=== PATIENT | male | born 1965 | race African-American/Black ===

== ENCOUNTER → 2020-05-27 | Outpatient (CLI) | payer OTHER ==
[~2020-05-27] MED LIST: ASPIRIN EC81 MG PO; BUPROPION HCL150 MG PO; CARVEDILOL3.125 MG PO; CLOPIDOGREL75 MG PO; DICYCLOMINE HCL10 MG PO; FINASTERIDE5 MG PO; LOPRESSOR25 MG PO; LOSARTAN POTASS25 MG PO; MONTELUKAST SOD10 MG PO; ROSUVASTATIN CA40 MG PO; TAMSULOSIN PO; WARFARIN SODIUM5 MG PO
[2020-05-27 12:38] LABS: BASOPHILS # (AUTO) 0.1 (0.0-0.1); BASOPHILS % 0.9 % (0.0-1.0); EOSINOPHILS # (AUTO) 0.5 (0.0-0.4); EOSINOPHILS % 5.2 % (0.0-6.0); HEMATOCRIT 37.9 % (38.2-49.6); HEMOGLOBIN 12.4 g/dL (14.0-18.0); LYMPHOCYTES # (AUTO) 2.9 (1.0-3.2); LYMPHOCYTES % 30.5 % (18.0-39.1); MEAN CORPUSCULAR HEMOGLOBIN 30.2 pg (28-32); MEAN CORPUSCULAR HGB CONC 32.7 g/dL (31-35); MEAN CORPUSCULAR VOLUME 92.4 fL (81-99); MONOCYTES % 10.4 % (4.4-11.3); NEUTROPHILS # (AUTO) 5.1 (2.1-6.9); NEUTROPHILS % 52.7 % (38.7-80.0); PLATELET COUNT 302 x10e3/uL (140-360); RED CELL DISTRIBUTION WIDTH 13.8 % (11.7-14.4)
[2020-05-27 13:00] LABS: ALANINE AMINOTRANSFERASE 198 IU/L (0-55); ALBUMIN 3.4 g/dL (3.5-5.0); ALBUMIN/GLOBULIN RATIO 0.8 (0.8-2.0); ALKALINE PHOSPHATASE 70 IU/L (40-150); ANION GAP 11.1 mmol/L (8-16); BLOOD UREA NITROGEN 12 mg/dL (7-26); BUN/CREATININE RATIO 11 (6-25); CALCIUM 9.8 mg/dL (8.4-10.2); CARBON DIOXIDE 23 mmol/L (22-29); CHLORIDE 106 mmol/L (98-107); CREATININE, SERUM 1.06 mg/dL (0.72-1.25); EST GLOMERULAR FILTRATION RATE > 60 ML/MIN (60-); GLUCOSE 101 mg/dL (74-118); POTASSIUM 4.1 mmol/L (3.5-5.1); SODIUM 136 mmol/L (136-145)
== END ==
LOC: LAB 05:00 → EDSTATUS 06-01 17:30
PROVIDERS: ATTEND Internal Medicine Interventional Cardiology
DX: Z01.818 Encounter for other preprocedural examination (principal); I20.8 Other forms of angina pectoris; Z53.8 Procedure and treatment not carried out for other reasons; Z11.59 Encounter for screening for other viral diseases
CPT/HCPCS: 36415; 80053; 85025; U0002

== ENCOUNTER 2020-06-03 14:54 | Inpatient (IN) | payer OTHER ==
[~2020-06-03] VITALS: Ht 170.2 cm; Wt 100.8 kg
--- NOTE | 2020-06-03 15:11 | Emergency Department Note ---
History of Present Illnes History of Present Illness Chief Complaint: Chest Pain History of Present Illness This is a 54 year old male arrives to the ED with complaints of chest pain just prior to arrival, recently had a cardiac catheter that was normal. Chief Complaint Comment ARRIVED AMBULATORY, DIAPHORETIC, AAOX4. STATES ONE HR CLINICAL ASST SUBSTERNAL NON RADIATING CHEST PAIN WITH SOB. STATED COVID TEST DONE ONE WK AGO AND WAS NEG. 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 PT IS A SMOKER. HTN, HIGH CHOLESTER, CAD. STAT EKG TO MD. Historian: Patient Arrival Mode: Car Extraction Operator Required: No Onset (how long ago): hour(s) Radiation: Reports non-radiation Severity: mild Onset quality: gradual Duration (how long): hour(s) Timing of current episode: constant Progression: unchanged Chronicity: recurrent Context: Denies recent illness Relieving factors: none Past Medical/Family History Physician Review I have reviewed the patient's past medical and family history. Any updates have been documented here. Past Medical History Recent Fever: No Clinical Suspicion of Infectio: No New/Unexplained Change in Ment: No Past Medical History: Hypertension, CAD, Hyperlipedemia Other Surgery: RT HAND Social History Smoking Cessation: Former smoker Counseling Performed: Yes Alcohol Use: Social Physically hurt or threatened: No Review of Systems Review of Systems Constitutional: Reports no symptoms EENTM: Reports no symptoms Cardiovascular: Reports chest pain Respiratory: Reports no symptoms Gastrointestinal: Reports no symptoms Genitourinary: Reports no symptoms Musculoskeletal: Reports no symptoms Integumentary: Reports no symptoms Neurological: Reports no symptoms Psychological: Reports no symptoms Endocrine: Reports no symptoms Hematological/Lymphatic: Reports no symptoms Physical Exam Related Data Allergies: Coded Allergies: No Known Allergies (Unverified , 06/03/20) Triage Vital Signs Vital Signs Date Time Temp Pulse Resp B/P (MAP) Pulse Ox O2 Delivery O2 Flow Rate FiO2 06/03/20 15:00 97.5 63 22 110/77 100 Room Air Vital signs reviewed: Yes Physical Exam CONSTITUTIONAL Constitutional: Present well-developed, Present well-nourished HENT HENT: Present normocephalic, Present atraumatic, Present oropharynx clear/ moist, Present nose normal HENT L/R: Present left ext ear normal, Present right ext ear normal EYES Eyes: Reports PERRL, Reports conjunctivae normal NECK Neck: Present ROM normal PULMONARY Pulmonary: Present effort normal, Present breath sounds normal CARDIOVASCULAR Cardiovascular: Present regular rhythm, Present heart sounds normal, Present capillary refill normal, Present normal rate GASTROINTESTINAL Abdominal: Present soft, Present nontender, Present bowel sounds normal GENITOURINARY Genitourinary: Present exam deferred SKIN Skin: Present warm, Present dry MUSCULOSKELETAL Musculoskeletal: Present ROM normal NEUROLOGICAL Neurological: Present alert, Present oriented x 3, Present no gross motor or sensory deficits PSYCHOLOGICAL Psychological: Present mood/affect normal, Present judgement normal Results Imaging Imaging results reviewed: Yes Procedures 12 Lead ECG Interpretation ECG Interpretation : ECG: ECG 1 Extraction Operator: Interpreted by ED physician Prior ECG tracings: reviewed Rhythm: sinus rhythm Rate: normal QRS axis: normal ST segments normal: Yes T waves normal: Yes Clinical Impression: normal ECG Assessment & Plan Medical Decision Making MDM 54 yo M arrived to the ED with complaints of chest pain worse on exertion, high heart score. Pt required hospital admission for further work up. Assessment & Plan Final Impression: (1) Unstable angina Depart Disposition: ADMITTED Last Vital Signs Date Time Temp Pulse Resp B/P (MAP) Pulse Ox O2 Delivery O2 Flow Rate FiO2 06/03/20 15:00 97.5 63 22 110/77 100 Room Air Home Meds Reported Medications Warfarin Sodium (COUMADIN) 5 Mg Tablet, MG PO DAILY@1700 06/04/20 Finasteride (FINASTERIDE) 5 Mg Tablet, 5 MG PO DAILY 06/03/20 [Tamsulosin] 0.4 MG No Conflict Check, 40 MG PO DAILY 06/03/20 Bupropion Hcl (BUPROPION HCL SR) 150 Mg Tablet.er, 150 MG PO DAILY 06/03/20 Dicyclomine Hcl (DICYCLOMINE HCL) 10 Mg Capsule, 10 MG PO QID 06/03/20 Montelukast Sodium (MONTELUKAST SODIUM) 10 Mg Tablet, 10 MG PO DAILY 06/03/20 Rosuvastatin Calcium (Rosuvastatin Calcium) 40 Mg Tablet, 40 MG PO DAILY 06/03/20 Metoprolol Tartrate (LOPRESSOR) 25 Mg Tab, 25 MG PO BID 06/03/20 Losartan Potassium (LOSARTAN POTASSIUM) 25 Mg Tablet, 25 MG PO DAILY 06/03/20 Aspirin (ASPIRIN EC) 81 Mg Tablet.dr, 81 MG PO DAILY 06/03/20 Clopidogrel Bisulfate (CLOPIDOGREL) 75 Mg Tablet, 75 MG PO DAILY 06/03/20 Carvedilol (CARVEDILOL) 3.125 Mg Tablet, 3.125 MG PO BID 06/03/20 RAHEEM RODRÍGUEZ, Jun 03, 2020 15:11
[2020-06-03 15:21] LABS: BASOPHILS # (AUTO) 0.1 (0.0-0.1); BASOPHILS % 1.1 % (0.0-1.0); EOSINOPHILS # (AUTO) 0.5 (0.0-0.4); EOSINOPHILS % 4.8 % (0.0-6.0); HEMATOCRIT 39.4 % (38.2-49.6); LYMPHOCYTES # (AUTO) 4.6 (1.0-3.2); MEAN CORPUSCULAR HEMOGLOBIN 30.8 pg (28-32); MEAN CORPUSCULAR VOLUME 93.4 fL (81-99); MONOCYTES # (AUTO) 0.7 (0.2-0.8); MONOCYTES % 6.2 % (4.4-11.3); NEUTROPHILS # (AUTO) 5.2 (2.1-6.9); NEUTROPHILS % 46.4 % (38.7-80.0); PLATELET COUNT 328 x10e3/uL (140-360); RED BLOOD COUNT 4.22 x10e6/uL (4.3-5.7); RED CELL DISTRIBUTION WIDTH 14.2 % (11.7-14.4)
[2020-06-03 15:40] LABS: ALANINE AMINOTRANSFERASE 116 IU/L (0-55); ALBUMIN 3.6 g/dL (3.5-5.0); ALBUMIN/GLOBULIN RATIO 0.8 (0.8-2.0); ALKALINE PHOSPHATASE 79 IU/L (40-150); ANION GAP 13.3 mmol/L (8-16); BLOOD UREA NITROGEN 10 mg/dL (7-26); BUN/CREATININE RATIO 9 (6-25); CALCIUM 10.5 mg/dL (8.4-10.2); CARBON DIOXIDE 21 mmol/L (22-29); CHLORIDE 112 mmol/L (98-107); CREATINE KINASE 248 IU/L (30-200); CREATININE, SERUM 1.08 mg/dL (0.72-1.25); EST GLOMERULAR FILTRATION RATE > 60 ML/MIN (60-); GLUCOSE 113 mg/dL (74-118); POTASSIUM 4.3 mmol/L (3.5-5.1); SODIUM 142 mmol/L (136-145)
[2020-06-03] MEDS ORDERED: TAMSULOSIN PO (16:03)
[2020-06-03] MEDS ORDERED: FINASTERIDE5 MG PO (16:03)
[2020-06-03] MEDS ORDERED: BUPROPION HCL150 MG PO (16:03)
[2020-06-03] MEDS ORDERED: LOPRESSOR25 MG PO (16:03)
[2020-06-03] MEDS ORDERED: MONTELUKAST SOD10 MG PO (16:03)
[2020-06-03] MEDS ORDERED: CLOPIDOGREL75 MG PO (16:03)
[2020-06-03] MEDS ORDERED: ASPIRIN EC81 MG PO (16:03)
[2020-06-03] MEDS ORDERED: ROSUVASTATIN CA40 MG PO (16:03)
[2020-06-03] MEDS ORDERED: CARVEDILOL3.125 MG PO (16:03)
[2020-06-03] MEDS ORDERED: DICYCLOMINE HCL10 MG PO (16:03)
[2020-06-03] MEDS ORDERED: LOSARTAN POTASS25 MG PO (16:03)
--- NOTE | 2020-06-03 16:21 | Diagnostic Imaging Report ---
EXAM: CHEST SINGLE (PORTABLE) DATE: 06/03/2020 3:53 PM INDICATION: Chest pain COMPARISON: None FINDINGS: The trachea is midline. The lungs are symmetrically expanded without evidence for large focal consolidation, pneumothorax, or significant pleural effusion. The cardiomediastinal silhouette and pulmonary vasculature are within normal limits. No acute osseous abnormality is identified. The surrounding soft tissues are unremarkable. IMPRESSION: No acute cardiopulmonary process identified. Signed by: Dr. Uche Ricks MD on 06/03/2020 4:17 PM
[2020-06-03] MEDS ORDERED: ASPIRIN 81 MG CHEW TAB PO ONE (16:45)
[2020-06-03 21:00] VITALS: BP 113/68
[2020-06-03 23:57] LABS: CREATINE KINASE MB 1.3 ng/mL (0-5.0)
[2020-06-04] VITALS (8 sets, daily range): BP systolic 92–124; BP diastolic 60–80
[2020-06-04] MEDS ORDERED: FENTANYL CITRATE/PF 100MCG/2 ML INJ ONE (06:38)
[2020-06-04] MEDS ORDERED: LIDOCAINE HCL 2% LOCAL 20 ML VIAL ONE (06:38)
[2020-06-04] MEDS ORDERED: MIDAZOLAM HCL 2 MG/2 ML VIAL ONE ×2 (06:38→07:36)
[2020-06-04] MEDS ORDERED: HEPARIN SOD/SOD CHLORIDE 2,000 ML ONE (06:38)
[2020-06-04] MEDS ORDERED: VERAPAMIL HCL 2.5 MG/ML 2 ML VIAL ONE (06:38)
[2020-06-04] MEDS ORDERED: HEPARIN SOD (PORCINE) 1000 UNIT/ML 30ML ONE (06:38)
[2020-06-04] MEDS ORDERED: SODIUM CHLORIDE 0.9% 1000ML 1,000 ML ONE (06:39)
[2020-06-04] MEDS ORDERED: NITROGLYCERIN/D5W 200 MCG/ML 250 ML ONE (06:39)
[2020-06-04] MEDS ORDERED: IOPAMIDOL 370 MG/ML 200 ML INFUS..BTL INJ ONE (06:39)
--- NOTE | 2020-06-04 07:00 | NUR ---
patient to photo lab manager.
[2020-06-04] MEDS ORDERED: SODIUM CHLORIDE 0.9% 50ML 50 ML ONE (07:09)
[2020-06-04] MEDS ORDERED: BIVALRIUDIN 250 MG/VIAL VIAL IV ONE (07:09)
[2020-06-04] MEDS ORDERED: ASPIRIN 325 MG TAB ONE (07:52)
[2020-06-04] MEDS ORDERED: PRASUGREL 10 MG TAB ONE (07:52)
[2020-06-04] MEDS ORDERED: ONDANSETRON HCL INJ 2MG/ML 2ML 2 MG/ML VIAL IV PRN (08:00)
[2020-06-04] MEDS ORDERED: MORPHINE SULFATE INJ 4 MG/ML INJ 1ML IV PRN (08:00)
[2020-06-04] MEDS ORDERED: HYDROCODONE/APAP 5MG-325MG TAB PO PRN (08:00)
[2020-06-04] MEDS ORDERED: ACETAMINOPHEN 325 MG TAB PO PRN (08:00)
[2020-06-04] MEDS ORDERED: ZOLPIDEM TARTRATE 5 MG TAB PO PRN (08:00)
[2020-06-04] MEDS: SODIUM CHLORIDE 0.9% 1000ML 1,000 ML IV SCH ×2 (08:30→16:36)
--- NOTE | 2020-06-04 08:30 | NUR ---
patient back from scientific laboratory supervisor. right groin dressing dry and intact. stent placed. patient drowsy but easily arouses to voice. vitals stable. pedal pulses present. no distress. instructed to stay flat x4 hrs.
[2020-06-04] MEDS ORDERED: FINASTERIDE 5 MG TAB PO SCH (09:00)
[2020-06-04] MEDS ORDERED: MONTELUKAST SODIUM 10 MG TAB PO SCH (09:00)
[2020-06-04] MEDS ORDERED: LOSARTAN POTASSIUM 25 MG TAB PO SCH (09:00)
[2020-06-04] MEDS ORDERED: BUPROPION HCL SR 150 MG TAB PO SCH (09:00)
[2020-06-04] MEDS ORDERED: CLOPIDOGREL BISULFATE 75 MG TAB PO SCH (09:00)
[2020-06-04] MEDS ORDERED: ATORVASTATIN 40 MG TAB PO SCH (09:30)
[2020-06-04] MEDS ORDERED: TAMSULOSIN HCL 0.4 MG CAP PO SCH (09:30)
[2020-06-04 09:44] LABS: CREATINE KINASE MB 1.2 ng/mL (0-5.0)
[2020-06-04] MEDS: DICYCLOMINE HCL 10 MG CAP PO SCH ×3 (09:49→16:54)
[2020-06-04] MEDS: ASPIRIN 81 MG ENTERIC COATED PO SCH ×2 (09:49→10:04)
[2020-06-04] MEDS: CARVEDILOL 3.125 MG TAB PO SCH ×2 (09:49→16:54)
--- NOTE | 2020-06-04 10:34 | Operative Report ---
DATE OF PROCEDURE: 06/04/2020 SURGEON: Lucas Kumar MD INDICATION: Myocardial infarction. PROCEDURES PERFORMED: 1. Left heart catheterization, selective coronary angiography. 2. PTCA and stent placement to the right posterior descending artery branch of the right coronary artery. 3. Conscious sedation administration, hemodynamic and neurological monitoring by track repair laborer RN as well as recovery, supervision by , 65 minutes. COMPLICATIONS: None. BLOOD LOSS: Minimal. RECOMMENDATIONS: Aspirin, warfarin, and clopidogrel for 3 months followed by aspirin and clopidogrel lifelong. DESCRIPTION OF PROCEDURE: Access was obtained in the right femoral artery. A 6-[place] sheath was placed. Coronary angiography demonstrated moderate disease in the left anterior descending and circumflex arteries, diffuse 30% to 50% stenosis. The diagonal artery was diffusely diseased 90% to 99% stenosis, 1.5 mm vessel. Circ right coronary artery was a dominant vessel with diffuse 30% to 50% stenosis. Right posterior descending artery had a 90% stenosis. The patient received intravenous Angiomax, oral prasugrel, and aspirin for anticoagulation. The right coronary artery was cannulated using a JR4 6-[place] Citizen guiding catheter. Short Runthrough wire was advanced for support. Primary stent 2.25 x 12 mm Synergy stent deployed at 18 atmospheres. Excellent end result, less than 10% residual stenosis, SELENE-3 flow. No complications. Right groin Mynx closure device deployed. The patient discharged. The patient transferred to the floor in stable condition. Lucas Kumar MD KSB/MODL /[id number]
[2020-06-04 10:51] LABS: INR 1.16; PROTHROMBIN TIME 15.6 seconds (11.9-14.5)
[2020-06-04] MEDS ORDERED: WARFARIN SOD 5 MG TAB PO SCH (17:00)
[2020-06-04] MEDS ORDERED: WARFARIN SODIUM5 MG PO (18:26)
--- NOTE | 2020-06-04 18:57 | NUR ---
WALKING ROUNDS PERFORMED, RECEIVED PT SITTING ON COUCH, AAOX3, RR EVEN AND NON-LABORED, ON RA. NO S/SX OF DISTRESS NOTED. PT REPORTS WAITING ON TO ARRIVE FOR DISCHARGE. LEFT PT SITTING ON SIDE OF COUCH, CALL LIGHT AND PHONE WITHIN REACH.
--- NOTE | 2020-06-04 19:22 | NUR ---
IV DISCONTINUED FROM (L) FA, CATHETER TIP INTACT, PRESSURE AND DRESSING APPLIED.
--- NOTE | 2020-06-04 19:25 | NUR ---
PT TRANSFERRED BY WHEELCHAIR TO PRIVATE AUTO, PT IN STABLE CONDITION, NO S/SX OF DISTRESS NOTED. PT HAS BELONGINGS. RX AND DISCHARGE PAPERWORK IN FOLDER WITH PATIENT.
== END 2020-06-04 19:25 | disposition home or self-care (01) | DRG 247 ==
LOC: ER 14:58 → ERHOLD 16:47 → MED/SURG 21:01
PROVIDERS: ADMIT Internal Medicine Interventional Cardiology; ATTEND Internal Medicine Interventional Cardiology
PROC: 027034Z Dilation of Coronary Artery, One Artery with Drug-eluting Intraluminal Device, Percutaneous Approach (ICD-10-PCS; principal; 2020-06-04)
PROC: 4A023N7 Measurement of Cardiac Sampling and Pressure, Left Heart, Percutaneous Approach (ICD-10-PCS; 2020-06-04)
PROC: B2151ZZ Fluoroscopy of Left Heart using Low Osmolar Contrast (ICD-10-PCS; 2020-06-04)
PROC: B2111ZZ Fluoroscopy of Multiple Coronary Arteries using Low Osmolar Contrast (ICD-10-PCS; 2020-06-04)
DX: I25.10 Atherosclerotic heart disease of native coronary artery without angina pectoris (principal); I10 Essential (primary) hypertension; P74.31 Hyperkalemia of newborn; Z87.891 Personal history of nicotine dependence; Z79.01 Long term (current) use of anticoagulants; Z11.59 Encounter for screening for other viral diseases
CPT/HCPCS: 36415; 71045; 80053; 82550; 82553; 84484; 85025; 85610; 92928; 93005; 93454; 99152; 99153; 99284; C1760; C1769; C1874; J0583; J1644; J2001; J2250; J3010; J7030; Q9967; U0002